=== PATIENT | female | born 1950 | race African-American/Black ===

== ENCOUNTER 2025-03-27 14:24 | Emergency (ER) | payer OTHER ==
[~2025-03-27] VITALS: Ht 167.6 cm; Wt 75.0 kg
[2025-03-27 14:30] VITALS: BP 132/64; PULSE 71; RESP 16; TEMP 36.7; O2SAT 99
== END 2025-03-27 15:01 | disposition left against medical advice (07) ==
LOC: ER 14:59
DX: R55 Syncope and collapse (principal); I10 Essential (primary) hypertension; Z53.21 Procedure and treatment not carried out due to patient leaving prior to being seen by health care provider